=== PATIENT | female | born 1950 | race Caucasian/White ===

== ENCOUNTER → 2018-01-08 | Outpatient (CLI) | payer MEDICARE, OTHER ==
[~2018-01-08] MED LIST: GADOBUTROL 7.5 MMOL/7.5 ML PFS ONE
[2018-01-08 09:21] LABS: CREATININE 0.77 mg/dL (0.55-1.02)
== END | disposition home or self-care (01) ==
LOC: RAD 08:22
PROVIDERS: ATTEND Registered Nurse
DX: M47.892 Other spondylosis, cervical region (principal); M48.02 Spinal stenosis, cervical region; M54.12 Radiculopathy, cervical region
CPT/HCPCS: 36415; 70553; 72156; 82565; A9585